=== PATIENT | female | born 1940 | race Caucasian/White ===

== ENCOUNTER 2024-11-15 10:10 | Day surgery (SDC) | payer MEDICARE, MEDICAID, SELFPAY ==
[2024-11-15] VITALS (10 sets, daily range): BP systolic 111–143; BP diastolic 57–81; PULSE 70–93; RESP 12–21; TEMP 36.2–36.5; O2SAT 93–99; BMI 24.4
--- NOTE | 2024-11-15 09:48 | EKG_ITS ---
[facility] Test Date: 2024-11-15 Pat Name: SHA PEREZ Department: Room: - Gender: Female Warehouse Pricing And Inventory Clerk: LANDON : 1940 Requested By: Martin Castaneda Order Number: [id number] Reading MD: Martin Castaneda Measurements Intervals [place] Rate: 88 P: RI: QRS: 239 QRSD: 154 T: 114 QT: 383 QTc: 464 Interpretive Statements ELECTRONIC VENTRICULAR PACEMAKER ABNORMAL RHYTHM ECG Compared to ECG 01/21/2024 09:26:48 No significant changes /store/S0/[id number]
[2024-11-15 11:39] LABS: Basophils # (Auto) 0.1 Thou/mm3 (0.0-0.2); Basophils % (Auto) 1 % (0-2.5); Eosinophils # (Auto) 0.3 Thou/mm3 (0.0-0.5); Eosinophils % (Auto) 4 % (0-10); Hemoglobin 14.3 g/dL (12.0-16.0); Immature Granulocytes % (Auto) 1 % (0-0); Immature Granulocytes Auto 0.04 Thou/mm3 (0.00-0.00); Lymphocytes # (Auto) 1.4 Thou/mm3 (1.0-4.8); Lymphocytes % (Auto) 19 % (10-50); Mean Corpuscular HGB Conc 33.3 g/dl (31.0-37.0); Mean Corpuscular Hemoglobin 29.1 pg (25.0-35.0); Mean Corpuscular Volume 88 fL (80-100); Monocytes # (Auto) 0.6 Thou/mm3 (0.0-0.8); Monocytes % (Auto) 8 % (0-12); Neutrophils % (Auto) 67 % (37-80); Nucleated Red Blood Cell % 0 /100 WBC (0); Platelet Count 172 Thou/mm3 (140-440); Red Blood Count 4.91 Miln/mm3 (4.00-5.20); White Blood Count 7.4 Thou/mm3 (3.6-11.0)
[2024-11-15 11:46] LABS: Partial Thromboplastin Time 25.9 Seconds (22.0-36.0); Prothrombin Time 11.4 Seconds (9.0-12.2)
[2024-11-15 11:48] LABS: Anion Gap 9 (7-16); BUN/Creatinine Ratio 20 Ratio (12-20); Blood Urea Nitrogen 34 mg/dL (9-23); Calcium 9.1 mg/dL (8.3-10.6); Carbon Dioxide 24.4 mMol/L (20.0-31.0); Chloride 106 mMol/L (98-107); Creatinine (Component) 1.7 mg/dL (0.6-1.3); Estimated Creatinine Clearance 21.4 mL/min (>60); Glucose 272 mg/dL (74-106); Osmolality,Calculated 295 (275-295); Potassium 4.6 mMol/L (3.4-5.1); Sodium 139 mMol/L (136-145); eGFR 29 See Note
[2024-11-15] MEDS: ceFAZolin/D5W 1 GM IVPB 1 GM/50 ML BAG IV (14:23)
--- NOTE | 2024-11-15 16:48 | PC.NURSE ---
patient transfer to private vehicle via wheel chair. discharge instruction given to daughter sandy and patient. both expressed verbal understanding. site is soft, flat, slightly tender and no signs of hematoma. dressing is clean dry and intact.
--- NOTE | 2024-11-16 00:42 | ESOP_ITS ---
RE: SHA PEREZ : 1940 DATE OF OPERATION: 11/15/2024 REFERRING PHYSICIAN: Porter Darnell MD PROCEDURE PERFORMED: 1. Biventricular AICD generator change out. 2. Conscious sedation monitoring. INDICATIONS FOR PROCEDURE: The patient with history of chronic congestive heart failure, history of chronic atrial fibrillation, history of previous BiVe AICD implantation. During the routine check, was noted to have end-of-life parameters of the AICD generator. DETAILS OF THE PROCEDURE: After explaining the procedure in detail to the patient and after obtaining a proper consent, the patient was given a total of intravenous 2 mg of Versed and 75 mcg of fentanyl before and during the procedure. The left subclavian area was prepped with antiseptic solution. Local anesthetic 2% lidocaine was used. An oblique incision 5 cm in length was made in the left subclavian area. Subcutaneous tissue was dissected. The AICD generator pocket was opened and the leads were unscrewed from the generator and were tested and as the leads were functioning satisfactorily, a new AICD generator was attached to the ventricular as well as atrial lead. To the left ventricular as well as right ventricular leads, the atrial lead port was capped as the patient was in atrial fibrillation. The AICD generator was put back in the pocket. The pocket was irrigated with IV Ancef solution. The subcutaneous tissue was closed with 2-0 chromic catgut continuous sutures and skin was closed with tricia. The patient tolerated the procedure very well without any complications. The AICD data obtained is as follows: The left ventricular lead threshold potential obtained is 0.4 volts with the current at that threshold of 1.0 milliamps and lead resistance of 610 ohms. The right ventricular lead threshold potential obtained is 0.4 volts with current at that threshold of 0.6 milliamps, lead resistance of 340 ohms, and R-wave amplitude was over 20 millivolts. The AICD generator used is Grabbed [employer] SureScan, serial number [id number]. The AICD settings of pacing were left at VVIR mode with a lower rate at 70 per minute and the AICD shock settings were left as before as rate of VF over 214 with shocks at 40 joules x6 and VT mode of rate of 176 and overdrive pacing and then 40 joules for a total of 5 shocks. cc: Porter Darnell MD DT: 14:18:17 TT: 22:17:00 Ref: [id number] - TID: [id number] MTDD
== END 2024-11-15 16:45 | disposition home or self-care (01) ==
PROVIDERS: PCP Family Medicine; Referring Provider Internal Medicine Cardiovascular Disease; Visit Provider Internal Medicine Cardiovascular Disease
PROC: 0JPT0PZ Removal of Cardiac Rhythm Related Device from Trunk Subcutaneous Tissue and Fascia, Open Approach (ICD-10-PCS; CPT 33249; principal; 2024-11-15 12:00)
DX: Z45.010 Encounter for checking and testing of cardiac pacemaker pulse generator [battery] (principal); E03.9 Hypothyroidism, unspecified; I10 Essential (primary) hypertension; I20.9 Angina pectoris, unspecified; I48.20 Chronic atrial fibrillation, unspecified; I50.22 Chronic systolic (congestive) heart failure; Z01.810 Encounter for preprocedural cardiovascular examination
CPT/HCPCS: 33249; 36415; 80048; 85025; 85610; 85730; 93005; 99152; 99153; A4649; C1882; J0171; J0461; J0689; J2250; J2310; J2371; J3010; J3490

== ENCOUNTER 2025-05-07 17:25 | Emergency (ER) | payer MEDICARE, MEDICAID, SELFPAY ==
[2025-05-07 17:28] VITALS: BP 174/127; PULSE 100; RESP 16; TEMP 36.4; O2SAT 100
--- NOTE | 2025-05-07 17:28 | EKG_ITS ---
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
--- NOTE | 2025-05-07 17:28 | XR_ITS ---
EXAMINATION: AP chest single view TECHNIQUE: AP portable semiupright chest single view Date and time: May 07, 2025, 1741 hours, comparison September 01, 2019 INDICATIONS: Shortness of breath today. FINDINGS: Moderate CHF Mild enlargement cardiac contour. Prominent central vascular engorgement with perihilar edema Consider superimposed pneumonia at the lung bases Cardiac leads stable position Prominent osteopenia IMPRESSION: Moderate CHF Suspicious for superimposed pneumonia at the lung bases
[2025-05-07 17:29] VITALS: BMI 24.1
--- NOTE | 2025-05-07 17:29 | PD.EDADULT ---
ED General RME/HPI General Chief complaint: Shortness of Breath/Dyspnea Stated complaint: SOB Time Seen by Provider: 05/07/25 17:27 Arrival date/time: 05/07/25 17:25 84-year-old female patient with significant history of COPD, congestive heart failure, chronic A-fib diabetes mellitus hypertension came in for evaluation regarding worsening shortness of breath. Patient patient is been having worsening of shortness of breath for the last 7 days, getting worse over the last few days today patient had to stop walking for few steps due to shortness of breath. While talking patient is unable to speak complete sentences due to shortness of breath. Currently using 24/7 oxygen at home. When EMS arrived patient was noted to be satting 92 on 2 L. Patient is also complaining of lower leg swelling, patient denies any other complaints. No medication was taken prior to ER visit. Patient is taking 40 mg of Lasix every day. Also taking 25 mg of spironolactone every day. Denies any chest pain denies any cough denies any fever denies any other complaints. Related Data Home Medications ?Medication ?Instructions ?Recorded ?Confirmed insulin glargine 100 unit/mL (3 60 unit subcut QDAY 05/16/19 11/15/24 mL) subcutaneous pen (Basaglar KwikPen U-100 Insulin) montelukast 10 mg tablet 10 mg PO QDAY 05/16/19 11/15/24 pravastatin 20 mg tablet 20 mg PO QDAY 05/16/19 11/15/24 carvedilol 3.125 mg tablet 3.125 mg PO BID 09/01/19 11/15/24 digoxin 125 mcg (0.125 mg) tablet 125 mcg PO QDAY 09/01/19 11/15/24 (Digox) furosemide 40 mg tablet 40 mg PO QDAY 09/01/19 11/15/24 insulin regular human 100 unit/mL 10 unit subcut TID 09/01/19 11/15/24 injection solution (Novolin R Regular U-100 Insulin) sacubitril 49 mg-valsartan 51 mg 1 tab PO BID 09/01/19 11/15/24 tablet (Entresto) spironolactone 25 mg tablet 25 mg PO QDAY 09/01/19 11/15/24 albuterol sulfate 90 mcg/actuation 2 puff inhalation TID 10/10/20 11/15/24 aerosol inhaler (Ventolin HFA) apixaban 5 mg tablet (Eliquis) 5 mg PO BID 10/10/20 11/15/24 Held on 11/15/24. Instructions: Resume on 11/17/24. hold elquis. may restart on 11/17/24 levothyroxine 100 mcg tablet 100 mcg PO QDAY 10/10/20 11/15/24 ascorbic acid (vitamin C) 500 mg 500 mg PO QDAY 11/15/24 11/15/24 chewable tablet (Acerola C) biotin 5,000 mcg chewable tablet 5,000 mcg PO DAILY 11/15/24 11/15/24 empagliflozin 10 mg tablet 10 mg PO DAILY 11/15/24 11/15/24 (Jardiance) Previous Rx's ?Medication ?Instructions ?Recorded albuterol sulfate 90 mcg/actuation 2 inh inhalation Q6H PRN shortness 05/07/25 aerosol inhaler of breath or wheezing #8.5 grams levofloxacin 500 mg tablet 500 mg PO Q24H 7 days #7 tabs 05/07/25 prednisone 50 mg tablet 50 mg PO QDAY #5 tabs 05/07/25 Allergies Allergy/AdvReac Type Severity Reaction Status Date / Time No Known Allergies Allergy Verified 05/07/25 17:42 Review of Systems Review of Systems Narrative Review of Systems: Review of system reviewed and within normal limits except mentioned in HPI ED Exam Narrative Physical exam: VITAL SIGNS: Reviewed. GENERAL APPEARANCE: Alert and interactive, follows commands, no acute distress, HEAD AND FACE: Non-traumatic. ENT: PERRL, pink conjunctivitis, eyelid no trauma, Mucous membrane moist. NECK: Supple, nontender, no nuchal rigidity. CHEST: No tenderness, no crepitus, no paradoxical movement, no retractions. LUNGS: Clear, well ventilated, symmetric, no rales, no wheezing, no ronchi, no stridor, good breath sounds bilaterally. HEART: Regular rate, regular rhythm, no murmur, no gallops. ABDOMEN: Soft, positive bowel sounds, nondistended, no guarding, nontender, no rebound, no masses, RECTAL: Deferred. GENITAL: Deferred. NEUROLOGICAL: Gross motor function intact sensory function intact, Appropriate for age. MUSCULOSKELETAL: low back nontender, full range of motion. EXTREMITIES: +2 bilateral lower extremity swelling, nontender, full range of motion. SKIN: Color pink, dry, no rash, no lacerations, no abrasions, no contusions. LYMPHATICS: Deferred. Course Quality Measures none Orders Category Date Time Status EKG (ED ONLY) *Do not use* NOW Care 05/07/25 17:28 Completed EKG (ED Only) Stat Exams 05/07/25 17:28 Ordered XR chest 1V Stat Exams 05/07/25 17:28 Completed B-Type Natriuretic Peptide Stat Lab 05/07/25 18:00 Completed CBC Stat Lab 05/07/25 18:00 Completed Comprehensive Metabolic Panel Stat Lab 05/07/25 18:00 Completed Digoxin Stat Lab 05/07/25 18:00 Completed Magnesium Stat Lab 05/07/25 18:00 Completed Partial Thromboplastin Time Stat Lab 05/07/25 18:00 Completed Prothrombin Time with INR Stat Lab 05/07/25 18:00 Completed Troponin I Stat Lab 05/07/25 18:00 Completed Troponin I Stat Lab 05/07/25 20:21 Completed Urinalysis, C/S if Indicated Stat Lab 05/07/25 20:01 Completed VBG [Venous Blood Gas] Stat Lab 05/07/25 18:00 Completed Azithromycin Inj [Zithromax Inj] 500 mg Med 05/07/25 19:10 Discontinued Sodium Chloride 0.9% 250 ml [Ns] 250 ml IV Q24H Furosemide Inj [Lasix Inj] Med 05/07/25 17:41 Discontinued 40 mg IVP X1 ONE Levalbuterol Rt [Xopenex Rt [place]] Med 05/07/25 17:41 Discontinued 1.25 mg INH X1 ONE Sodium Chloride Rt [place] 0.9% [NS Rt [place] 0.9%] Med 05/07/25 17:41 Discontinued 3 ml INH PRN PRN cefTRIAXone/D5w 1gm IV premix [Rocephin/D5w 1gm IV Med 05/07/25 19:09 Discontinued premix] 1 gm in 50 ml IV X1 dexAMETHasone INJ [Decadron Inj] 10 mg Med 05/07/25 17:41 Discontinued Sodium Chloride 0.9% [Ns] 100 ml IV X1 Vital Signs Vital signs: Vital Signs Temperature 97.6 F 05/07/25 17:28 Pulse Rate 100 05/07/25 17:28 Respiratory Rate 16 05/07/25 17:28 Blood Pressure 174/127 H 05/07/25 17:28 Pulse Oximetry (%) 100 05/07/25 17:28 Oxygen Delivery Method Oxy Mask 05/07/25 17:28 Oxygen Flow Rate 5 05/07/25 17:28 Discharge Plan Plan Patient Disposition: HOME (Self Care) Discharge Disposition comment: stable Prescriptions/Referrals Prescriptions/Med Rec: New levofloxacin 500 mg tablet 500 mg PO Q24H 7 Days Qty: 7 0RF prednisone 50 mg tablet 50 mg PO QDAY Qty: 5 0RF albuterol sulfate 90 mcg/actuation HFA aerosol inhaler 2 inh inhalation Q6H PRN (Reason: shortness of breath or wheezing) Qty: 8.5 0RF No Action furosemide 40 mg Tablet 40 mg PO QDAY spironolactone 25 mg Tablet 25 mg PO QDAY carvedilol 3.125 mg tablet 3.125 mg PO BID Patient Comments: TK 1 T PO BID digoxin [Digox] 125 mcg (0.125 mg) tablet 125 mcg PO QDAY Patient Comments: TK 1 T PO QD Entresto 49-51 mg Tablet 1 tab PO BID Novolin R Regular U100 Insulin 100 unit/mL solution 10 unit subcut TID Patient Comments: INJECT 10 UNITS UNDER THE SKIN TID montelukast 10 mg Tablet 10 mg PO QDAY pravastatin 20 mg Tablet 20 mg PO QDAY insulin glargine [Basaglar KwikPen U-100 Insulin] 100 unit/mL (3 mL) Insulin Pen 60 unit SUBCUT QDAY levothyroxine 100 mcg Tablet 100 mcg PO QDAY albuterol sulfate [Ventolin HFA] 90 mcg/actuation HFA aerosol inhaler 2 puff INHALATION TID Eliquis 5 mg tablet 5 mg PO BID Patient Comments: TAKE 1 TABLET BY MOUTH TWICE DAILY Jardiance 10 mg tablet 10 mg PO DAILY biotin 5,000 mcg tablet,chewable 5,000 mcg PO DAILY ascorbic acid (vitamin C) [Acerola C] 500 mg tablet,chewable 500 mg PO QDAY Referrals: Porter Darnell MD [Primary Care Provider, Family Practice] - In 1 week Problem List Clinical Impression: Community acquired pneumonia, Acute exacerbation of chronic obstructive airways disease Patient/Caregiver Discharge Instructions Discharge Activity: activity as tolerated Education Materials: ED COPD Flare, ED Pneumonia (Adult) Additional Instructions: Thank you for the opportunity for serving you today. You are stable for discharged . You are advised to: Follow-up with your PCP in 1 to 2 days Return to ED for worsening of symptoms Take medication as prescribed Print Language: Macedonian Stand Alone Forms: Abi Award Info., Patient Portal Info Letter JUANITA/LOS Supervising Physician CHON Supervising Physician: MD Avril MDM Narrative MDM hospital course (for use when minimal MDM required): 84-year-old female patient with significant history of COPD, congestive heart failure, chronic A-fib diabetes mellitus hypertension came in for evaluation regarding worsening shortness of breath. Patient patient is been having worsening of shortness of breath for the last 7 days, getting worse over the last few days today patient had to stop walking for few steps due to shortness of breath. While talking patient is unable to speak complete sentences due to shortness of breath. Currently using 24/7 oxygen at home. When EMS arrived patient was noted to be satting 92 on 2 L. Patient is also complaining of lower leg swelling, patient denies any other complaints. No medication was taken prior to ER visit. Patient is taking 40 mg of Lasix every day. Also taking 25 mg of spironolactone every day. Denies any chest pain denies any cough denies any fever denies any other complaints. EKG showed paced rhythm, ventricular to 105 bpm, no ST segment depression or elevation noted. Patient's workup today CBC showed no leukocytosis. No anemia noted this CMP unremarkable except for creatinine 1.6 BUN of 31 patient's initial troponin was noted to be 0.067, after triage it went up to 0.068 not much change. Currently patient not having any chest pain. BNP is elevated 133 7 Chest x-ray showed mild congestive heart failure with superimposed pneumonia. Currently patient is satting 95% on room air. Patient was given Xopenex breathing treatment Lasix IV IV ceftriaxone IV Zithromax and Decadron. On reevaluation patient verbalized significant improvement of symptoms. Patient is stable for discharge home Medication Administration(s) Medication Administration History Discontinued Medications Furosemide (Furosemide Inj 10 Mg/Ml 4ml Vial) 40 mg IVP X1 ONE Stop: 05/07/25 17:42 Last Admin: 05/07/25 18:40 Dose: 40 mg Documented By: CS Dexamethasone Sodium Phosphate (10 mg/ Sodium Chloride) 101 mls @ 101 mls/hr IV X1 ONE Stop: 05/07/25 17:42 Last Infusion: 05/07/25 19:49 Dose: Infused Documented By: Admin: 05/07/25 18:42 Dose: 101 mls/hr Documented By: SERG Ceftriaxone Sodium/Dextrose (Rocephin/D5w 1gm Iv Premix) 1 gm in 50 mls @ 100 mls/hr IV X1 ONE Stop: 05/07/25 19:38 Last Infusion: 05/07/25 20:29 Dose: Infused Documented By: Admin: 05/07/25 19:51 Dose: 100 mls/hr Documented By: LUCIANA Azithromycin 500 mg/ Sodium (Chloride) 250 mls @ 250 mls/hr IV Q24H EWNDY Stop: 05/14/25 19:09 Last Infusion: 05/07/25 21:48 Dose: Infused Documented By: Admin: 05/07/25 20:36 Dose: 250 mls/hr Documented By: LUCIANA Levalbuterol HCl (Levalbuterol Rt 1.25 Mg/0.5 Ml Nebu) 1.25 mg INH X1 ONE Stop: 05/07/25 17:42 Last Admin: 05/07/25 18:12 Dose: 1.25 mg Documented By: FATMATA Sodium Chloride (Sodium Chloride Rt Orquidea 0.9% 3 Ml Nebu) 3 ml INH PRN PRN PRN Reason: SOLN Stop: 06/06/25 17:40 Last Admin: 05/07/25 18:12 Dose: 3 ml Documented By: FATMATA Diagnosis Differential Diagnosis ED Complaint MDM: Shortness of breath, COPD and CHF exacerbation, pneumonia Diagnoses ruled out and/or further discussions: COPD exacerbation, pneumonia
[2025-05-07 17:39] VITALS: PULSE 98; RESP 24; O2SAT 99
[2025-05-07] MEDS: SODIUM CHLORIDE RT SOL 0.9% 3 ML NEBU INH (18:12)
[2025-05-07] MEDS: LEVALBUTEROL RT 1.25 MG/0.5 ML NEBU INH (18:12)
[2025-05-07 18:17] VITALS: PULSE 95; RESP 26; O2SAT 98
[2025-05-07 18:35] LABS: Base Excess, Venous -4 (-3-3); O2 Saturation, Venous 62 % (96-97); PCO2, Venous 40 mmHg (36-56); PO2, Venous 33 mmHg (15-58); pH, Venous 7.34 (7.33-7.66)
[2025-05-07 18:39] LABS: Basophils # (Auto) 0.1 Thou/mm3 (0.0-0.2); Basophils % (Auto) 1 % (0-2.5); Eosinophils # (Auto) 0.4 Thou/mm3 (0.0-0.5); Eosinophils % (Auto) 4 % (0-10); Hematocrit 44.7 % (36.0-46.0); Hemoglobin 14.3 g/dL (12.0-16.0); Immature Granulocytes Auto 0.03 Thou/mm3 (0.00-0.00); Lymphocytes # (Auto) 1.7 Thou/mm3 (1.0-4.8); Lymphocytes % (Auto) 18 % (10-50); Mean Corpuscular HGB Conc 32.0 g/dl (31.0-37.0); Mean Corpuscular Hemoglobin 30.7 pg (25.0-35.0); Mean Corpuscular Volume 96 fL (80-100); Monocytes # (Auto) 0.6 Thou/mm3 (0.0-0.8); Monocytes % (Auto) 7 % (0-12); Neutrophils # (Auto) 6.4 Thou/mm3 (1.8-7.7); Neutrophils % (Auto) 70 % (37-80); Nucleated Red Blood Cell # 0.00 Thou/mm3 (0.00-0.00); Nucleated Red Blood Cell % 0 /100 WBC (0); Platelet Count 248 Thou/mm3 (140-440); RDW Standard Deviation 50.2 fL (36.4-46.3); Red Blood Count 4.66 Miln/mm3 (4.00-5.20); White Blood Count 9.2 Thou/mm3 (3.6-11.0)
[2025-05-07 18:40] VITALS: BP 146/104; PULSE 98
[2025-05-07] MEDS: FUROSEMIDE INJ 10 MG/ML 4ML VIAL 40 MG IVP (18:40)
[2025-05-07 18:54] LABS: INR 1.1 (0.9-1.3); Partial Thromboplastin Time 28.1 Seconds (22.0-36.0); Prothrombin Time 11.9 Seconds (9.0-12.2)
[2025-05-07 19:05] LABS: B-Type Natriuretic Peptide 1337 pg/mL (0-100)
[2025-05-07 19:17] LABS: Alanine Aminotransferase 19 U/L (10-49); Albumin, Serum 4.3 gm/dL (3.4-4.8); Albumin/Globulin Ratio 1.3 (1.2-2.2); Alkaline Phosphatase 124 U/L (46-116); Anion Gap 10 (7-16); Aspartate Amino Transferase 34 U/L (0-34); BUN/Creatinine Ratio 19 Ratio (12-20); Bilirubin,Total 0.6 mg/dL (0.3-1.2); Blood Urea Nitrogen 31 mg/dL (9-23); Calcium 9.8 mg/dL (8.3-10.6); Calcium (Corrected) 9.8 mg/dL (8.5-10.1); Carbon Dioxide 22.6 mMol/L (20.0-31.0); Chloride 110 mMol/L (98-107); Creatinine (Component) 1.6 mg/dL (0.6-1.3); Estimated Creatinine Clearance 22.7 mL/min (>60); Globulin 3.3 gm/dL (2.3-3.5); Glucose 137 mg/dL (74-106); Magnesium 2.2 mg/dL (1.6-2.6); Osmolality,Calculated 293 (275-295); Potassium 4.2 mMol/L (3.4-5.1); Sodium 143 mMol/L (136-145); Total Protein 7.6 gm/dL (5.7-8.2); eGFR 31 See Note
[2025-05-07 19:25] LABS: Troponin I 0.067 ng/mL (0.0-0.045)
[2025-05-07] MEDS: cefTRIAXone/D5w 1gm IV premix 1 GM/50 ML BAG IV (19:51)
[2025-05-07 20:32] VITALS: BP 169/95; PULSE 93; RESP 20; TEMP 36.7; O2SAT 95
[2025-05-07 20:32] LABS: Collection Type, Urine Clean Catch
[2025-05-07] MEDS: AZITHROMYCIN INJ 500 MG in SODIUM CHLORIDE 0.9% 250 ML 250 ML 250 MG IV (20:36)
[2025-05-07 20:49] LABS: Bacteria,Urine Rare; Bilirubin,Urine Negative (Negative); Blood,Urine Trace (Negative); Clarity,Urine Clear (Clear/Hazy); Color,Urine Lt-Yellow (Lt Yel-Yel); Culture Indicated,Urine Not Indicated; Glucose, Urine 1+ (Negative); Ketones,Urine Negative (Negative); Leukocyte Esterase,Urine Negative (Negative); Nitrite,Urine Negative (Negative); PH,Urine 6.0 (5.0-7.0); Protein,Urine 1+ (Neg - Trace); RBC,Urine 5 /hpf (0-3); Specific Gravity,Urine 1.007 (1.001-1.035); Squamous Epithelial Cell,Urine 2 /hpf (0-5); Urobilinogen,Urine Negative mg/dL (0.0-1.0); WBC,Urine 2 /hpf (0-5)
[2025-05-07 21:19] LABS: Troponin I 0.068 ng/mL (0.0-0.045)
[2025-05-07 21:48] VITALS: BP 161/102; PULSE 98; RESP 20; O2SAT 95
[2025-05-07 22:29] LABS: Digoxin 1.6 ng/mL (0.8-2.0)
== END 2025-05-07 21:51 | disposition home or self-care (01) ==
PROVIDERS: Nurse Practitioner Family; Emergency Provider Emergency Medicine; PCP Family Medicine
DX: J44.1 Chronic obstructive pulmonary disease with (acute) exacerbation (principal); J44.0 Chronic obstructive pulmonary disease with (acute) lower respiratory infection; J18.9 Pneumonia, unspecified organism; I48.20 Chronic atrial fibrillation, unspecified; I11.0 Hypertensive heart disease with heart failure; I50.9 Heart failure, unspecified; Z79.01 Long term (current) use of anticoagulants; Z95.0 Presence of cardiac pacemaker
CPT/HCPCS: 36415; 71045; 80053; 80162; 81001; 82803; 83735; 83880; 84484; 85025; 85610; 85730; 93005; 94640; 96365; 96366; 96375; 99284; J0456; J0696; J1100; J1938; J7050; J7612